=== PATIENT | female | born 1935 | race Two or more races ===

== ENCOUNTER 2025-04-16 16:37 | Inpatient (IN) | payer MEDICAID, OTHER ==
[~2025-04-16] VITALS: Ht 152.4 cm; Wt 52.7 kg
--- NOTE | 2025-04-16 17:04 | ECG ---
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
--- NOTE | 2025-04-16 17:04 | ED.PDOC ---
HPI (NEURO) HPI Comments 89 y/o F, BIBA, with PMHx of CVA presents to the ED for CC of weakness. EMS reports, patient is coming from home where she c/o generalized weakness with associated dizziness onset today (04/16/25). Patient denies headache, nausea, vomiting, disorientation, or changes in speech. No other symptoms or modifying factors are present at this time. Chief Complaint: Syncope Time Seen by MD: 16:50 Reviewed Notes: Nurses Notes, Commercial Assistant Notes, Medications, Allergies Information Source: Patient, Emergency Med Personnel Mode of Arrival: EMS Severity: Moderate Dizziness/Weakness Severity: Unable to do activities Headache Severity: None Timing: Days Duration: Since onset Prehospital treatment: None Weakness Location: Generalized Onset: At rest Circumstances: Spontaneous Symptoms: Weakness Before: Normal During: Awake After: Normal Mentation Modifying factors: Nothing Associated Signs and Symptoms: Weakness Past Medical History PAST MEDICAL HISTORY: CVA Surgical History: Denies all surgeries TAX COMPLIANCE OFFICER History: Denies all TAX COMPLIANCE OFFICER Hx Family History Family History: Unknown Social History Smoker: Non-Smoker Alcohol: Denies ETOH Use Drugs: Denies Drug Use Lives In: Home Constitutional: reports: weakness; denies: chills, diaphoresis, fatigue, fever, malaise, sweats, others EENTM: denies: blurred vision, double vision, ear bleeding, ear discharge, ear drainage, ear pain, ear ringing, eye pain, eye redness, hearing loss, mouth pain, mouth swelling, nasal discharge, nose bleeding, nose congestion, nose pain, photophobia, tearing, throat pain, throat swelling, voice changes, others Respiratory: denies: cough, hemoptysis, orthopnea, SOB at rest, shortness of b reath, SOB with excertion, stridor, wheezing, others Cardiovascular: denies: chest pain, dizzy spells, diaphoresis, Dyspnea on exertion, edema, irregular heart beat, left arm pain, lightheadedness, palpitations, PND, syncope, others Gastrointestinal: denies: abdomen distended, abdominal pain, blood streaked bowels, constipated, diarrhea, dysphagia, difficulty swallowing, hematemesis, melena, nausea, poor appetite, poor fluid intake, rectal bleeding, rectal pain, vomiting, others Genitourinary: denies: abnormal vagina bleeding, burning, dyspareunia, dysuria, flank pain, frequency, hematuria, incontinence, pain, , vagina discharge, urgency, others Neurological: reports: dizziness; denies: fainting, headache, left sided numbness, left sided weakness, numbness, paresthesia, pre-existing deficit, right sided numbness, right sided weakness, seizure, speech problems, tingling, tremors, weakness, others Musculoskeletal: denies: back pain, gout, joint pain, joint swelling, muscle pain, muscle stiffness, neck pain, others Integumetry: denies: bruises, change in color, change in hair/nails, dryness, laceration, lesions, lumps, rash, wounds, others Allergic/Immunocompromised: denies: Difficulty Healing, Frequent Infections, Hives, Itching, others Hematologic/Lymphatic: denies: anemia, blood clots, easy bleeding, easy brui sing, swollen glands, others Endocrine: denies: excessive hunger, excessive sweating, excessive thirst, ex cessive urination, flushing, intolerance to cold, intolerance to heat, unexplained weight gain, unexplained weight loss, others Psychiatric: denies: anxiety, bipolar disorder, depression, hopeless, panic disorder, schizophrenia, sleepless, suicidal, others All Other Systems: Reviewed and Negative Physical Exam General Appearance: Moderate Distress HEENT: Normal ENT Inspection, Pharynx Normal, TMs Normal Neck: Full Range of Motion, Non-Tender, Normal, Normal Inspection Respiratory: Chest Non-Tender, Lungs Clear, No Accessory Muscle Use, No Respiratory Distress, Normal Breath Sounds Cardiovascular: No Edema, No JVD, No Murmur, No Gallop, Normal Peripheral Pulses, Regular Rate/Rhythm Breast Exam: Deferred Gastrointestinal: No Organomegaly, Non Tender, No Pulsatile Mass, Normal Bowel Sounds, Soft Genitalia: Deferred Pelvic: Deferred Rectal: Deferred Extremities: No calf tenderness, No pedal edema Musculoskeletal : Apperance: Normal Neurologic: Alert, No Motor Deficits, No Sensory Deficits Cerebellar Function: NOT DONE Reflexes: NOT DONE Skin: Normal Color Peripheral Pulses: 3+ Radial (R), 3+ Radial (L) Lymphatic: No Adenopathy Was a procedure done? Was a procedure done?: No Differential Diagnosis (SZ) Seizure: Psychogenic Seizure, Closed Head Injury, CVA/TIA General Weakness: Dehydration, Electrolyte imbalance, Hypoglycemia, Hypotension, Vertigo: central, Vertigo: peripheral X-Ray, Labs, Meds, VS Vital Signs Date Time Temp Pulse Resp B/P (MAP) Pulse Ox O2 Delivery O2 Flow Rate FiO2 04/16/25 16:55 68 04/16/25 16:51 97.9 65 16 113/61 95 97.9 Patient alert. History of CVA. Vitals stable. Answering questions. Complaining of dizziness. Near-syncope. Explained to the patient. Continue monitoring. Time of 1ST Reevaluation: 17:20 Reevaluation 1ST: Unchanged Patient Education/Counseling: Diagnosis, Treatment Family Education/Counseling: No Family Present Departure 1 Departure Time of Disposition: 17:10 Impression: Primary Impression: Near syncope Additional Impression: Autonomic disorder Disposition: ADMITTED INPATIENT Admit to: Med Surg Condition: Guarded Critical Care Note Critical Care Time?: No Stability Stability form required: No Heart Score Heart Score: Heart Score Response (Comments) Value History N/A 0 EKG N/A 0 Age N/A 0 Risk Factors N/A 0 Troponin N/A 0 Total 0 I personally scribed for YOLANDE CAMPOS MD ([email or web address]) on 04/16/25 at 17:04. Electronically submitted by Sidra Garcia ([email or web address]). YOLANDE CAMPOS MD Apr 16, 2025 17:04
[2025-04-16 17:21] LABS: Hematocrit 37.6 % (36.0-46.0); Hemoglobin 12.3 g/dL (12.2-16.2); Mean Corpuscular Hemoglobin 29.0 pg (28.0-32.0); Mean Corpuscular Volume 88.6 fL (80.0-100.0); Nucleated Red Blood Cells % 0.1 %
[2025-04-16 17:25] LABS: Chloride 107 mmol/L (98-107); Potassium 4.3 mmol/L (3.5-5.1); Sodium 140 mmol/L (136-145)
[2025-04-16 17:26] LABS: Anion Gap 7 (5-15); Calcium 8.9 mg/dL (8.7-10.4); Carbon Dioxide 26 mmol/L (20-31)
[2025-04-16] MEDS: SODIUM CHLORIDE 0.9% 1,000 ML IV ONE (17:28)
[2025-04-16 17:31] LABS: Glucose 151 mg/dL (74-106)
--- NOTE | 2025-04-16 17:36 | DVH ---
EXAM: CT HEAD WITHOUT CONTRAST INDICATION: tia TECHNIQUE: CT of the head without intravenous contrast. Radiation Dose : 1. Head: CT Dose: CTDI volume is 53.4 mGy. Dose-length product is 965.2 mGy*cm The dose indicators for CT are the volume Computed Tomography (CT) Dose Index (CTDIvol) and the Dose Length Product (DLP), and are measured in units of mGy and mGy-cm, respectively. These indicators are not patient dose, but values generated from the CT scanner acquisition factors. The report includes radiation exposure data for exposures received during this examination. COMPARISON: None FINDINGS: Motion artifact degrades fine detail. No acute territorial infarct, intracranial hemorrhage, or mass effect. There are global involutional changes with compensatory prominence of the ventricles and sulci. Patchy periventricular and subcortical white matter hypoattenuation is nonspecific but may be related to small vessel ischemic disease. Chronic deep cerebral lacunar infarcts. Probable small chronic bilateral cerebellar infarcts. The orbits are normal. The paranasal sinuses and mastoid air cells are clear. The osseous structures are unremarkable. IMPRESSION: 1. No acute territorial infarct, intracranial hemorrhage, or mass effect. 2. Age-related involutional changes. Chronic ischemic changes as detailed. 3. If clinical symptoms persist, MRI may be beneficial in further evaluation. Radiation optimization: All CT scans at this facility use at least one of these dose optimization techniques: automated exposure control mA and/or kV adjustment per patient size (includes targeted exams where dose is matched to clinical indication) or iterative reconstruction.
--- NOTE | 2025-04-16 17:38 | DVH ---
CLINICAL HISTORY: Shortness of breath TECHNIQUE: Single frontal view of the chest was obtained. COMPARISON: None available. FINDINGS: DEVICES/LINES/TUBES: None. LUNGS: Scattered reticular opacities of the lung bases, which favors subsegmental atelectasis, mild scarring, and/or senescent changes. Otherwise, lungs are clear. No consolidation or jorge pulmonary edema. PLEURA: No pneumothorax or pleural effusion. MEDIASTINUM/OTHER: Normal heart size and mediastinal contours. Aortic atherosclerosis. Trachea is midline. BONES: No acute osseous abnormality. UPPER ABDOMEN: Unremarkable. IMPRESSION: No acute cardiopulmonary process.
[2025-04-16 17:50] LABS: BUN/Creatinine Ratio 17.5 (10.0-20.0); Blood Urea Nitrogen 17 mg/dL (9-23)
[2025-04-16 18:01] VITALS: PULSE 67; RESP 14; O2SAT 97
--- NOTE | 2025-04-16 23:45 | DVHHPRES ---
History of Present Illness Resident Creating Document: RADHA CRONIN RESIDENT History of Present Illness Mounika Guadarrama is an 89 year old Venezuelan-speaking female with past medical history of stroke presented to the hospital a syncopal episode. Patient reports that she was standing, washing her hands when she fainted. She did not hit her head because the daughter held her. She lost consciousness for a few seconds. She denies any tongue biting or seizure-like activity. She admits to having dizziness and blurry vision before the syncopal episode. Patient has a history of stroke 2 years back with residual left-sided weakness. she denies taking any home medication. She denies any previous syncopal episode, fever, shortness of breath or chest pain. PMHx:stroke PSHx: Hip surgery Family history: patient does not know family history Social history: ex-smoker, denies alcohol or illicit drug use. Lives with daughter. Does not remember where she lives Home medication: none Allergic history: no known allergies Review of Systems Review of Systems General: patient denies fever, fatigue, weakness, sweating, any recent changes in appetite and weight HEENT: No headaches, visual changes, hearing loss, tinnitus, nasal congestion and discharge, and sore throat. Cardiovascular: Denies chest pain, palpitations, dyspnea on exertion, orthopnea, or claudication. Respiratory: No cough, and wheezing. Gastrointestinal: Denies nausea, vomiting, dysphagia, odynophagia, heartburn, abdominal pain, flatulence, bloating, diarrhea, constipation, change in stool, or blood in stool. Genitourinary: No dysuria, hematuria, discharge, frequency, urgency, nocturia, incontinence, and urinary retention. Endocrine: No heat or cold intolerance, polydipsia, polyuria, and polyphagia. Neurological: No dizziness, extremity weakness and numbness, tremors, gait disturbance, seizures, and memory impairment. Psychiatric: Denies depression, anxiety, or insomnia. Musculoskeletal: Denies neck pain, stiffness and swelling, back pain, muscle weakness, joint pain, stiffness, swelling, or limited range of motion. Skin: No rashes, itching, skin lesion, changes in hair, nail, skin texture and breast. Hematologic/Lymphatic: Denies easy bruising, bleeding tendencies, or lymph node enlargement. Allergies: Coded Allergies: No Known Drug Allergy (Unverified Allergy, Unknown, 04/16/25) Exam Vital Signs Vital Signs Date Time Temp Pulse Resp B/P (MAP) Pulse Ox O2 Delivery O2 Flow Rate FiO2 04/16/25 20:00 97.6 70 12 137/62 (87) 93 97.6 04/16/25 18:01 Room Air* 0 21 Exam General Appearance: Alert, Oriented X3, Cooperative, No acute distress HEENT: Atraumatic, PERRLA, EOMI, Mucous membrane moist/pink Respiratory: Bilateral crackles Cardiovascular: Regular rate, Normal S1, Normal S2, No murmurs, no chest wall tenderness Abdominal: Normal bowel sounds, Soft, No tenderness, No hepatosplenomegaly, No masses Extremities: No clubbing, No cyanosis, No edema, Normal pulses, No tenderness/swelling Skin: No rashes, No breakdown, No significant lesion Neuro: Normal gait, Normal speech, Normal tone, Sensation intact, Strength 3/5 left upper and lower limbs, dysdiadochokinesia left side Psych/Mental Status: Mental status NL, Mood NL Labs/Xrays Labs Test 04/16/25 17:00 Range/Units White Blood Count 5.5 4.4-10.8 10^3/uL Red Blood Count 4.24 4.0-5.20 10^6/uL Hemoglobin 12.3 12.2-16.2 g/dL Hematocrit 37.6 36.0-46.0 % Mean Corpuscular Volume 88.6 80.0-100.0 fL Mean Corpuscular Hemoglobin 29.0 28.0-32.0 pg Mean Corpuscular Hemoglobin Concent 32.8 32.0-36.0 g/dL Red Cell Distribution Width 16.1 H 11.8-14.3 % Platelet Count 243 140-450 10^3/uL Mean Platelet Volume 8.5 6.9-10.8 fL Neutrophils (%) (Auto) 73.7 37.0-80.0 % Lymphocytes (%) (Auto) 17.1 10.0-50.0 % Monocytes (%) (Auto) 7.5 0.0-12.0 % Eosinophils (%) (Auto) 1.3 0.0-7.0 % Basophils (%) (Auto) 0.4 0.0-2.0 % Neutrophils # (Auto) 4.1 1.6-8.6 10 ^3/uL Lymphocytes # (Auto) 0.9 0.4-5.4 10 ^3/uL Monocytes # (Auto) 0.4 0-1.3 10 ^3/uL Eosinophils # (Auto) 0.1 0-0.8 10 ^3/uL Basophils # (Auto) 0 0-0.2 10 ^3/uL Nucleated Red Blood Cells 0.1 % Sodium Level 140 136-145 mmol/L Potassium Level 4.3 3.5-5.1 mmol/L Chloride Level 107 98-107 mmol/L Carbon Dioxide Level 26 20-31 mmol/L Anion Gap 7 5-15 Blood Urea Nitrogen 17 9-23 mg/dL Creatinine 0.97 0.550-1.02 mg/dL Glomerular Filtration Rate Calc 56 >90 mL/min BUN/Creatinine Ratio 17.5 10.0-20.0 Serum Glucose 151 H 74-106 mg/dL Calcium Level 8.9 8.7-10.4 mg/dL Troponin I High Sensitivity 9 </=34 ng/L SEPSIS Sepsis Screen Date sepsis recognized/suspect: Apr 16, 2025 Time Sepsis recognized/suspect: 1729 Recent Procedure: No On Antibiotic Therapy: No Respiratory Rate >20: No Heart Rate >90: No Temp<36 C (96.8 F) or >38.3 C: No SBP <90 or MAP <65 mmHG: No New Acute Mental Status Change: No Is the patient on CPAP, BIPAP,: No Physician Orders Head Without Contrast (04/16/25 16:52) Chest Portable (04/16/25 16:52) Urinalysis (04/16/25 16:52) Admit (04/16/25 23:43) Allergies (04/16/25 23:43) Code Status (04/16/25 23:43) Enoxaparin Sodium (Lovenox) (04/17/25 10:00) Fall Risk Precautions In Place QSHIFT (04/16/25 23:43) Complete Blood Count (04/17/25 04:00) Comprehensive Metabolic Panel (04/17/25 04:00) Cardiac Diet-2gna,Lofat,Lochol (04/17/25 Breakfast) Condition: Fair (04/16/25 23:43) Vital Signs Date Time Temp Pulse Resp B/P (MAP) Pulse Ox O2 Delivery O2 Flow Rate FiO2 04/16/25 20:00 97.6 70 12 137/62 (87) 93 97.6 04/16/25 18:01 97.6 67 14 121/46 (71) 99 97.6 04/16/25 18:01 67 14 97 Room Air* 0 21 04/16/25 16:55 68 04/16/25 16:51 97.9 65 16 113/61 95 97.9 Laboratory Tests Test 04/16/25 17:00 White Blood Count 5.5 10^3/uL (4.4-10.8) Medications Medications Dose Ordered Sig/Doug Route Start Time Stop Time Status Last Admin Dose Admin Sodium Chloride 1,000 ml @ 1,000 mls/hr Q1H ONCE IV 04/16/25 17:00 04/16/25 17:59 DC 04/16/25 17:28 1,000 MLS/HR Assessment/Plan Assessment/Plan Assessment and plan Syncope likely vasovagal History of stroke CT head CT angio head and neck Orthostatic vital signs Echo troponin, BNP Magnesium Aspirin, atorvastatin Hyperglycemia, rule out type 2 diabetes mellitus Blood glucose 151 Hemoglobin A1c PUD prophylaxis: not needed DVT prophylaxis: Lovenox 40mg Barriers to discharge: Medical diagnosis and management in progress. Patient lives with family. PCP: none Specialist Relevant To Admission: none Case discussed with Dr. Tsai. Code Status: Full Code. Complex patient care discussion needed. Spend total 37 minutes for bedside assessment, case discussion and management. Plan discussed with: Patient My Orders Orders - RADHA CRONIN RESIDENT Procedure Category Date Status Time Admit ADMIT 04/16/25 Verified 23:43 Allergies [facility] 04/16/25 Verified 23:43 Code Status CODE 04/16/25 Verified 23:43 Enoxaparin Sodium PHA 04/17/25 Verified (Lovenox) 10:00 Fall Risk Precautions [facility] 04/16/[address] 23:43 Complete Blood Count LAB 04/17/25 Verified 04:00 Comprehensive LAB 04/17/25 Verified Metabolic Panel 04:00 Cardiac DIET 04/17/25 Verified Diet-2gna,Lofat,Lochol Breakfast Condition: Fair [facility] 04/16/25 Verified 23:43 Visit Coding STANDARD RES Billing Provider: GISELE TSAI MD Date of Service if different f: Apr 16, 2025 Common Visit Codes: 82919-[id number] INP/OBS CARE (HIGH) Secondary Visit Codes: [id number] CARE PLAN 30 MINUTES RADHA CRONIN RESIDENT Apr 16, 2025 23:45
[2025-04-17] MEDS: ASPirin-EC 81 mg tab PO ONE (01:48)
[2025-04-17] MEDS: ATORVASTATIN 20 MG TAB PO ONE (01:48)
--- NOTE | 2025-04-17 06:25 | DVH ---
PROCEDURE: CT ANGIO HEAD/Neck HISTORY: h/o stroke Comparison Study: CT HEAD WITHOUT CONTRAST on DOS: 04/16/25 Exam Date:04/17/2025 05:17 AM TECHNIQUE: CTA head and neck was obtained with intravenous contrast. 3D image postprocessing was performed and images were used for interpretation and reporting. Radiation Dose : CT Dose: CTDI volume is 22.2 mGy. Dose-length product is 709.5 mGy*cm FINDINGS: CTA head: The bilateral distal internal carotid arteries, middle cerebral and anterior cerebral arteries are patent. There is a patent anterior communicating artery complex. The vertebral arteries are patent. Bilateral posterior cerebral arteries are patent. The basilar artery is patent. No evidence of arteriovenous malformation or aneurysm. No high-grade stenosis or occlusion. CTA neck: There are atherosclerotic calcifications in the thoracic aorta without significant stenosis. The right common carotid, right internal and external carotid arteries are patent. The left common carotid, left internal and external carotid arteries are patent. The bilateral vertebral arteries are patent. No evidence of dissection or high-grade stenosis in the neck. Emphysema in the lung apices. The surrounding soft tissues and osseous structures are otherwise unremarkable. IMPRESSION: 1. No evidence of hemodynamically significant intracranial stenosis, proximal occlusion or aneurysm. 2. No evidence of hemodynamically significant cervical stenosis or dissection. CAROTID STENOSIS REFERENCE Distal internal carotid artery diameter as the denominator for stenosis measurement: MILD = <50% stenosis. MODERATE = 50-69% stenosis. SEVERE = 70-89% stenosis. CRITICAL = 90-99% stenosis. OCCLUDED = 100% stenosis. All CT scans at this medical facility are performed using dose modulation techniques as appropriate to a performed exam including the following: Automated exposure control was utilized; adjustment of the MA and/or KV according to patient size; and use of iterative reconstruction technique.
[2025-04-17 06:29] LABS: Hematocrit 37.0 % (36.0-46.0); Hemoglobin 12.2 g/dL (12.2-16.2); Mean Corpuscular Hemoglobin 29.1 pg (28.0-32.0); Mean Corpuscular Volume 88.3 fL (80.0-100.0); Nucleated Red Blood Cells % 0.0 %
[2025-04-17] MEDS: IOHEXOL 350 MG/ML 100ML IJ ONE ×2 (06:35)
[2025-04-17 06:41] LABS: Triglycerides 78 mg/dL (< 150)
[2025-04-17 06:43] LABS: Cholesterol 151 mg/dL (< 200); HDL Cholesterol 53 mg/dL (40-59)
[2025-04-17 06:48] LABS: Alanine Aminotransferase 20 U/L (7-40); Albumin 4.0 g/dL (3.2-4.8); Alkaline Phosphatase 71 U/L (46-116); Anion Gap 8 (5-15); BUN/Creatinine Ratio 20.0 (10.0-20.0); Bilirubin, Total 0.6 mg/dL (0.2-1.0); Blood Urea Nitrogen 13 mg/dL (9-23); Carbon Dioxide 27 mmol/L (20-31); Chloride 105 mmol/L (98-107); Glucose 80 mg/dL (74-106); Magnesium 2.1 mg/dL (1.6-2.6); Potassium 3.6 mmol/L (3.5-5.1); Sodium 140 mmol/L (136-145); Total Protein 7.1 g/dL (5.7-8.2)
[2025-04-17 06:52] LABS: Calcium 8.6 mg/dL (8.7-10.4)
--- NOTE | 2025-04-17 10:20 | DVHPNRES ---
Progress Note Date Seen: Apr 17, 2025 Resident Creating Document: JONAH ZELAYA RESIDENT Medical Necessity Reason Pt with a Central, PICC or Fol: No Subjective Review of Systems This 89-year-old female Portuguese speaking past medical history of stroke with left-sided weakness(improving with PT) came to ER with a complaint of syncopal episode. As per daughter who accompanied with patient in ER, around 3:00 p.m. day before admission to hospital patient was washing her hand and suddenly feel dizziness associated with blurry vision. Daughter nearby the patient and hold her and put her down on the floor. Denies any head trauma or any seizure activity. As per daughter, patient having loss her consciousness for few sec. Patient having history of stroke 2 years back with residual left-sided weakness improving with physical therapy. Patient use Rollator walker at home for ambulation. Denies any similar episode before. During evaluation in ER, patient denies any fever, SOB, chest pain, cough, abdominal pain, dysuria. PMHx:stroke PSHx: Hip surgery Family history: patient does not know family history Social history: ex-smoker, denies alcohol or illicit drug use. Lives with daughter. Does not remember where she lives Allergic history: no known allergies PCP: [facility] medication: Aspirin 81 mg Patient seen and evaluated in bedside. Currently denies any acute distress. Echocardiogram pending. Objective vital signs Vital Sign Date Time Temp Pulse Resp B/P (MAP) Pulse Ox O2 Delivery O2 Flow Rate FiO2 04/17/25 08:21 76 18 147/72 (97) 94 04/17/25 08:00 97.3 97.3 04/17/25 08:00 Room Air* 0 21 medications Current Medications Medications Dose Ordered Sig/Doug Route Start Time Stop Time Status Last Admin Dose Admin Enoxaparin Sodium 40 mg DAILY SC 04/17/25 10:00 Aspirin 81 mg DAILY PO 04/17/25 10:00 Atorvastatin Calcium 40 mg HS PO 04/17/25 22:00 Examination General Appearance: Alert, Oriented X3, Cooperative, No acute distress HEENT: Atraumatic, PERRLA, EOMI, Mucous membrane moist/pink Respiratory: CTA BL, no wheeze or crackles noted Cardiovascular: Regular rate, Normal S1, Normal S2, No murmurs, no chest wall tenderness Abdominal: Normal bowel sounds, Soft, No tenderness, No hepatosplenomegaly, No masses Extremities: No clubbing, No cyanosis, No edema, Normal pulses, No tenderness/swelling Skin: No rashes, No breakdown, No significant lesion Neuro: Normal gait, Normal speech, Normal tone, Sensation intact, Strength 4/5 left upper and lower limbs compared to right upper/lower extremity Psych/Mental Status: Mental status NL, Mood NL laboratory and microbiology Laboratory Tests 04/17/25 06:08 Test 04/17/25 06:08 Range/Units Serum Glucose 80 74-106 mg/dL Problem List/Assessment/Plan Problem List/Assessment/Plan Syncope likely vasovagal History of stroke Ruled out orthostatic hypotension Blood pressure sitting 147/66, lying 141/72, standing 147/72 CT head: No acute territorial infarct, intracranial hemorrhage or mass effect. Age-related involutional changes CT angio head and neck: No evidence of hemodynamically significant intracranial stenosis, proximal occlusion or aneurysm. X-ray Chest: No acute cardiopulmonary disease EKG: Sinus rhythm, rate 68, QTC 465 Orthostatic vital signs Echo pending troponin-negative, BNP 255.77 Magnesium 2.1 Aspirin Atorvastatin Prediabetes Blood glucose 151 on admission Hemoglobin A1c 6.1 Avoid Sugar and sugar containing diet PUD prophylaxis: not needed DVT prophylaxis: Lovenox 40mg Goals of care discussions. More than 23minutes spent with patient and daughter. Case discussed with Dr. Tsai Plan discussed with: Patient, Daughter, Other (NURSE) My Orders My Orders Orders - JONAH ZELAYA Procedure Category Date Status Time Vitamin D, 25-Hydroxy LAB 04/17/25 In Process 09:00 Visit Coding STANDARD RES Billing Provider: GISELE TSAI MD Date of Service if different f: Apr 17, 2025 Common Visit Codes: [id number] INP/OBS CARE(HIGH) JONAH ZELAYA Apr 17, 2025 10:20 GISELE TSAI MD Apr 19, 2025 14:31
[2025-04-17] MEDS: ASPirin-EC 81 mg tab PO SCH (11:26)
[2025-04-17] MEDS: ENOXAPARIN SOD 40 MG/0.4 ML SYRINGE SC SCH (11:27)
[2025-04-17 12:27] VITALS: BP 150/60; PULSE 55; RESP 16; TEMP 97.4; O2SAT 92
[2025-04-17 12:40] VITALS: BP_SYST 114; BP_SYST 124; BP_SYST 150; BP_DIAS 51; BP_DIAS 60; BP_DIAS 61; PULSE 55; PULSE 69; PULSE 74; TEMP 97.4; O2SAT 92
[2025-04-17 13:06] LABS: Urine Protein, UAD Negative (Negative)
[2025-04-17 13:16] LABS: Amphetamine Screen, Urine Neg (NEGATIVE); Barbiturate Scree,Urine Neg (NEGATIVE); Benzodiazephine Screen, Urine Neg (NEGATIVE); Cannabinoid Screen, Urine Neg (NEGATIVE); Cocaine Screen, Urine Neg (NEGATIVE); Opiate Scree,Urine Neg (NEGATIVE); Phencyclidine Screen, Urine Neg (NEGATIVE)
[2025-04-17] MEDS ORDERED: ASPI1TAB20 PO (13:28)
[2025-04-17 14:15] VITALS: BP_SYST 114; BP_SYST 124; BP_SYST 150; BP_DIAS 51; BP_DIAS 60; BP_DIAS 61; PULSE 55; PULSE 69; PULSE 74; RESP 16; TEMP 97.4; O2SAT 92
[2025-04-17] MEDS: SODIUM CHLORIDE 0.9% 1,000 ML IV ONE (15:00)
[2025-04-17 17:00] VITALS: BP_SYST 136; BP_SYST 139; BP_SYST 146; BP_DIAS 57; BP_DIAS 59; PULSE 56; PULSE 57; PULSE 62; RESP 16; TEMP 97.4; O2SAT 96
--- NOTE | 2025-04-17 19:53 | DVHSR ---
APPROVED REPORT EXAM: Two-dimensional and M-mode echocardiogram with Doppler and color Doppler. Blood Pressure: 153/60 mmHg INDICATION Rule out structural heart disease RISK FACTORS Height: 5'0", Weight: 105 DIMENSIONS LVDd 4.2 (3.8-5.7cm) LA (2D) 4.0 (1.9-4.0cm) Aortic Root 3.5 (2.0-3.7cm) LVDs 2.9 (2.5-4.0cm) LA (MM) (1.9-4.0cm) Aortic Cusp Exc 1.7 (1.5-2.0cm) EF (%) 55.0 (55-70%) Rt. Atrium 4.2 (1.9-4.0cm) Asc. Aorta cm IVSd 1.2 (0.7-1.1cm) RV (D) (1.8-2.4cm) PWd 1.2 (0.7-1.1cm) Mitral Valve Mitral Mitral Stenosis E wave 0.61m/s MV Mean GR. mmHg A wave 0.90m/s MV Peak GR. mmHg E/A ratio 0.7 2D MVA cm2 DECEL Time 393ms PRESS 1/2 Time ms Aortic Valve Aortic Valve Aortic Stenosis V1 0.96m/s AO Mean GR. 4mmHg V2 1.49m/s AO Peak GR. 9mmHg LVOT Diameter 1.8 (1.8-2.4cm) Doppler KAUSAHL 1.64cm2 Pulmonic Valve V2 1.09m/s Tricuspid Valve TR Velocity 2.70m/s RVSP 37mmHg Other Information Technically limited study due to body habitus. Conclusion MODERATE DEGREE LVH MODERATE LV DIASTOLIC DYSFUNCTION LV EF IS 65% NORMAL VALVES NORMAL RV FUNCTION NO EFFUSION
[2025-04-17 20:00] VITALS: PULSE 64; PULSE 75; RESP 18; O2SAT 93
[2025-04-17 21:00] VITALS: BP_SYST 150; BP_SYST 154; BP_SYST 160; BP_DIAS 72; BP_DIAS 83; BP_DIAS 89; PULSE 64; PULSE 69; PULSE 86; RESP 19; TEMP 97; O2SAT 93
[2025-04-17] MEDS: ATORVASTATIN 20 MG TAB PO SCH (21:17)
[2025-04-18] VITALS (10 sets, daily range): BP systolic 128–151; BP diastolic 60–82; PULSE 52–75; RESP 16–20; TEMP 97.6–98.4; O2SAT 93–96
[2025-04-18 06:59] LABS: Hematocrit 35.7 % (36.0-46.0); Hemoglobin 11.7 g/dL (12.2-16.2); Mean Corpuscular Hemoglobin 28.9 pg (28.0-32.0); Mean Corpuscular Volume 87.8 fL (80.0-100.0); Nucleated Red Blood Cells % 0.0 %
[2025-04-18 07:18] LABS: Anion Gap 10 (5-15); Carbon Dioxide 27 mmol/L (20-31); Potassium 3.7 mmol/L (3.5-5.1); Sodium 144 mmol/L (136-145)
[2025-04-18 07:19] LABS: Calcium 8.7 mg/dL (8.7-10.4)
[2025-04-18 07:20] LABS: Chloride 107 mmol/L (98-107)
[2025-04-18 07:24] LABS: BUN/Creatinine Ratio 14.8 (10.0-20.0); Blood Urea Nitrogen 9 mg/dL (9-23); Glucose 83 mg/dL (74-106)
--- NOTE | 2025-04-18 16:18 | DVHPNRES ---
Progress Note Date Seen: Apr 18, 2025 Resident Creating Document: JONAH ZELAYA RESIDENT Medical Necessity Reason Pt with a Central, PICC or Fol: No Subjective Review of Systems This 89-year-old female [place] speaking past medical history of stroke with left-sided weakness(improving with PT) came to ER with a complaint of syncopal episode. As per daughter who accompanied with patient in ER, around 3:00 p.m. day before admission to hospital patient was washing her hand and suddenly feel dizziness associated with blurry vision. Daughter nearby the patient and hold her and put her down on the floor. Denies any head trauma or any seizure activity. As per daughter, patient having loss her consciousness for few sec. Patient having history of stroke 2 years back with residual left-sided weakness improving with physical therapy. Patient use Rollator walker at home for ambulation. Denies any similar episode before. During evaluation in ER, patient denies any fever, SOB, chest pain, cough, abdominal pain, dysuria. PMHx:stroke PSHx: Hip surgery Family history: patient does not know family history Social history: ex-smoker, denies alcohol or illicit drug use. Lives with daughter. Does not remember where she lives Allergic history: no known allergies PCP: [facility] medication: Aspirin 81 mg Seen and evaluated bedside today. Patient having asymptomatic bradycardia. After activity like movement body parts heart rate reaches 55 to 75. Currently denies any acute distress. Appetite is improving. Objective vital signs Vital Sign Date Time Temp Pulse Resp B/P (MAP) Pulse Ox O2 Delivery O2 Flow Rate FiO2 04/18/25 12:55 98.2 52 18 130/60 (83) 96 98.2 04/18/25 08:18 Room Air* 0 21 Total Intake and Output 04/17/25 04/17/25 04/18/25 15:00 23:00 07:00 Intake Total 1200 ml 0 ml Balance 1200 ml 0 ml medications Current Medications Medications Dose Ordered Sig/Doug Route Start Time Stop Time Status Last Admin Dose Admin Enoxaparin Sodium 40 mg DAILY SC 04/17/25 10:00 04/18/25 11:12 40 MG Aspirin 81 mg DAILY PO 04/17/25 10:00 04/18/25 11:11 81 MG Atorvastatin Calcium 40 mg HS PO 04/17/25 22:00 04/17/25 21:17 40 MG Examination Patient currently lying on bed General Appearance: Alert, Oriented X3, Cooperative, No acute distress HEENT: Atraumatic, PERRLA, EOMI, Mucous membrane moist/pink Respiratory: CTA BL, no wheeze or crackles noted Cardiovascular: Regular rate, Normal S1, Normal S2, No murmurs, no chest wall tenderness Abdominal: Normal bowel sounds, Soft, No tenderness, No hepatosplenomegaly, No masses Extremities: No clubbing, No cyanosis, No edema, Normal pulses, No tenderness/swelling Skin: No rashes, No breakdown Neuro: Normal gait, Normal speech, Normal tone, Sensation intact, Strength 4/5 left upper and lower limbs compared to right upper/lower extremity Psych/Mental Status: Mental status NL, Mood NL laboratory and microbiology Laboratory Tests 04/18/25 06:05 Test 04/18/25 06:05 Range/Units Serum Glucose 83 74-106 mg/dL Problem List/Assessment/Plan Problem List/Assessment/Plan Syncope likely vasovagal History of stroke Ruled out orthostatic hypotension Blood pressure sitting 147/66, lying 141/72, standing 147/72 CT head: No acute territorial infarct, intracranial hemorrhage or mass effect. Age-related involutional changes CT angio head and neck: No evidence of hemodynamically significant intracranial stenosis, proximal occlusion or aneurysm. X-ray Chest: No acute cardiopulmonary disease EKG: Sinus rhythm, rate 68, QTC 465 Orthostatic vital signs Echo 04/17/2025 showed moderate degree of LVH, moderate diastolic dysfunction, LVEF 65%, normal valves troponin-negative, BNP 255.77 Magnesium 2.1 Aspirin Atorvastatin Symptomatic bradycardia Heart rate increases during physical activity. Patient denies any SOB, chest pain, cough, palpitation. Echocardiogram shows moderate diastolic dysfunction with EF 65% Patient will benefitted with follow-up with outpatient Cardiology possible stress test and Holter monitor. Prediabetes Blood glucose 151 on admission Hemoglobin A1c 6.1 Avoid Sugar and sugar containing diet PUD prophylaxis: not needed DVT prophylaxis: Lovenox Goals of care discussions. More than 19 minutes spent with patient. Case discussed with Dr. Tsai Plan discussed with: Patient, Other (Nurse) Visit Coding STANDARD RES Billing Provider: GISELE TSAI MD Date of Service if different f: Apr 18, 2025 Common Visit Codes: [id number] INP/OBS CARE(HIGH) JONAH ZELAYA RESIDENT Apr 18, 2025 16:18 GISELE TSAI MD Apr 19, 2025 14:46
[2025-04-19] MEDS: MELATONIN 5 MG TAB PO ONE (00:24)
[2025-04-19 02:00] VITALS: BP 143/73; PULSE 59; RESP 19; TEMP 97.9; O2SAT 94
[2025-04-19 05:00] VITALS: BP 131/64; PULSE 55; RESP 18; TEMP 97.7; O2SAT 96
[2025-04-19 05:24] LABS: Hematocrit 34.9 % (36.0-46.0); Hemoglobin 11.6 g/dL (12.2-16.2); Mean Corpuscular Hemoglobin 28.7 pg (28.0-32.0); Mean Corpuscular Volume 86.7 fL (80.0-100.0); Nucleated Red Blood Cells % 0.0 %
[2025-04-19 05:38] LABS: Chloride 106 mmol/L (98-107); Potassium 3.8 mmol/L (3.5-5.1); Sodium 142 mmol/L (136-145)
[2025-04-19 05:39] LABS: Anion Gap 7 (5-15); Carbon Dioxide 29 mmol/L (20-31)
[2025-04-19 05:40] LABS: Calcium 8.9 mg/dL (8.7-10.4)
[2025-04-19 05:44] LABS: BUN/Creatinine Ratio 25.0 (10.0-20.0); Blood Urea Nitrogen 17 mg/dL (9-23); Glucose 89 mg/dL (74-106)
[2025-04-19] MEDS ORDERED: ASPI81CH59 PO (06:39)
[2025-04-19] MEDS ORDERED: ATOR20TA50 PO (06:39)
--- NOTE | 2025-04-19 06:39 | DVHDSRES ---
Discharge Summary Date of Admission Resident Creating Document: JONAH ZELAYA RESIDENT Apr 16, 2025 at 23:43 Date of Discharge: Apr 19, 2025 Labs/Diagnostic Data: Laboratory Results Test 04/19/25 04:47 04/17/25 06:08 04/16/25 17:00 04/16/25 12:36 White Blood Count 5.1 10^3/uL (4.4-10.8) Red Blood Count 4.03 10^6/uL (4.0-5.20) Hemoglobin 11.6 g/dL (12.2-16.2) Hematocrit 34.9 % (36.0-46.0) Mean Corpuscular Volume 86.7 fL (80.0-100.0) Mean Corpuscular Hemoglobin 28.7 pg (28.0-32.0) Mean Corpuscular Hemoglobin Concent 33.1 g/dL (32.0-36.0) Red Cell Distribution Width 15.7 % (11.8-14.3) Platelet Count 228 10^3/uL (140-450) Mean Platelet Volume 8.6 fL (6.9-10.8) Neutrophils (%) (Auto) 50.4 % (37.0-80.0) Lymphocytes (%) (Auto) 35.1 % (10.0-50.0) Monocytes (%) (Auto) 11.0 % (0.0-12.0) Eosinophils (%) (Auto) 3.1 % (0.0-7.0) Basophils (%) (Auto) 0.4 % (0.0-2.0) Neutrophils # (Auto) 2.6 10 ^3/uL (1.6-8.6) Lymphocytes # (Auto) 1.8 10 ^3/uL (0.4-5.4) Monocytes # (Auto) 0.6 10 ^3/uL (0-1.3) Eosinophils # (Auto) 0.2 10 ^3/uL (0-0.8) Basophils # (Auto) 0 10 ^3/uL (0-0.2) Nucleated Red Blood Cells 0.0 % Sodium Level 142 mmol/L (136-145) Potassium Level 3.8 mmol/L (3.5-5.1) Chloride Level 106 mmol/L (98-107) Carbon Dioxide Level 29 mmol/L (20-31) Anion Gap 7 (5-15) Blood Urea Nitrogen 17 mg/dL (9-23) Creatinine 0.68 mg/dL (0.550-1.02) Glomerular Filtration Rate Calc 84 mL/min (>90) BUN/Creatinine Ratio 25.0 (10.0-20.0) Serum Glucose 89 mg/dL (74-106) Calcium Level 8.9 mg/dL (8.7-10.4) Hemoglobin A1c 6.1 % A1C (<5.7) Magnesium Level 2.1 mg/dL (1.6-2.6) Total Bilirubin 0.6 mg/dL (0.2-1.0) Aspartate Amino Transferase (AST) 23 U/L (13-40) Alanine Aminotransferase (ALT) 20 U/L (7-40) Alkaline Phosphatase 71 U/L (46-116) B-Type Natriuretic Peptide 255.77 pg/mL (0-100) Total Protein 7.1 g/dL (5.7-8.2) Albumin 4.0 g/dL (3.2-4.8) Triglycerides Level 78 mg/dL (< 150) Cholesterol Level 151 mg/dL (< 200) LDL Cholesterol 86 mg/dL (< 100) HDL Cholesterol 53 mg/dL (40-59) Vitamin D 25-Hydroxy 42.9 ng/mL (30.0-100) Troponin I High Sensitivity 9 ng/L (</=34) Urine Opiates Screen Neg (NEGATIVE) Urine Fentanyl Screen Neg (NEGATIVE) Urine Barbiturates Screen Neg (NEGATIVE) Urine Phencyclidine Screen Neg (NEGATIVE) Urine Amphetamines Screen Neg (NEGATIVE) Urine Benzodiazepines Screen Neg (NEGATIVE) Urine Cocaine Screen Neg (NEGATIVE) Urine Cannabinoids Screen Neg (NEGATIVE) Test 04/16/25 12:35 Urine Color Light-yellow (Yellow) Urine Clarity Clear (Clear) Urine pH 6.5 (5.0-9.0) Urine Specific [place] 1.046 (1.001-1.035) Urine Protein Negative (Negative) Urine Ketones Negative (Negative) Urine Blood Negative /uL (Negative) Urine Nitrite Negative (Negative) Urine Bilirubin Negative (Negative) Urine Urobilinogen Normal mg/dL (Negative) Urine Leukocyte Esterase Negative /uL (Negative) Urine RBC <1 /hpf (0 - 4) Urine Microscopic WBC < 1 /HPF (0-5) Urine Squamous Epithelial Cells Few /hpf (<5) Urine Bacteria None seen /hpf (None Seen) Urine Glucose Trace mg/dL (Normal) Other Laboratory Tests 04/19/25 04:47 Brief Hx & Hospital Course: This 89-year-old female [place]er speaking past medical history of stroke with left-sided weakness(improving with PT) came to ER with a complaint of syncopal episode. As per daughter who accompanied with patient in ER, around 3:00 p.m. day before admission to hospital patient was washing her hand and suddenly feel dizziness associated with blurry vision. Daughter nearby the patient and hold her and put her down on the floor. Denies any head trauma or any seizure activity. As per daughter, patient having loss her consciousness for few sec. Patient having history of stroke 2 years back with residual left-sided weakness improving with physical therapy. Patient use Rollator walker at home for ambulation. Denies any similar episode before. During evaluation in ER, patient denies any fever, SOB, chest pain, cough, abdominal pain, dysuria. PMHx:stroke PSHx: Hip surgery Family history: patient does not know family history Social history: ex-smoker, denies alcohol or illicit drug use. Lives with daughter. Does not remember where she lives Allergic history: no known allergies PCP: [facility] medication: Aspirin 81 mg Hospital course: Patient admitted due to syncope. CT head: No acute territorial infarct, intracranial hemorrhage or mass effect. Age-related involutional changes.CT angio head and neck: No evidence of hemodynamically significant intracranial stenosis, proximal occlusion or aneurysm. X-ray Chest: No acute cardiopulmonary disease. EKG: Sinus rhythm, rate 68, QTC 465Orthostatic vital negative(Blood pressure sitting 147/66, lying 141/72, standing 147/72). Echo 04/17/2025 showed moderate degree of LVH, moderate diastolic dysfunction, LVEF 65%, normal valves. Troponin-negative, BNP 255.77. Patient conservatively during hospital stay and got treatment both acute and chronic medical condition. Patient came maximum benefit during inpatient stay. Patient also asymptomatic bradycardia heart rate increases during physical activity, Patient will benefitted with follow-up with outpatient Cardiology possible stress test and Holter monitor. During examination on 05/19/2024, patient denies any fever, SOB, chest pain, headache, abdominal pain, dysuria or any other acute distress. Patient is hemodynamically stable for discharge. Patient has received maximum benefit from inpatient treatment. Time was given to answer patient's questions and concerns in layman terms and explained by RN. Patient verbalized understanding and agreed with treatment and follow-up. Patient was recommended to return to ER if he experiences any worsening symptoms not limited to current symptoms. Follow-up with PCP and outpatient continuity clinic [place] morning within week after discharge. Follow up with outpatient Cardiology 2-4 weeks after discharge. Patient advised to resume home medication and medication sent to pharmacy. Physical examination Constitutional: No: Fever, Chills, Sweats, Weakness, Malaise, Other Eyes: No: Pain, Vision change, Conjunctivae inflammation, Eyelid inflammation, Other, Redness ENT: No: Ear pain, Ear discharge, Nose pain, Nose discharge, Nose congestion, Mouth pain, Mouth swelling, Throat pain, Throat swelling, Other Respiratory: Shortness of breath; No: Cough, Dry, SOB with excertion, Wheezing, Hemoptysis, Pleuritic Pain, Sputum, Wheezing, Other Cardiovascular: No: Chest Pain, Palpitations, Orthopnea, Paroxysmal Noc. Dyspnea, Edema, Lt Headedness, Other Gastrointestinal: No: Nausea, Vomiting, Abdominal Pain, Diarrhea, Constipation, Melena, Hematochezia, Other Genitourinary: No Dysuria, No Frequency, No Incontinence, No Hematuria, No Retention, No Other Musculoskeletal: No: other, neck pain, shoulder pain, arm pain, back pain, hand pain, leg pain, foot pain Skin: No: Rash, Lesions, Jaundice, Bruising, Other Neurological: No: Weakness, Numbness, Incoordination, Change in speech, Confusion, Seizures, Other > 23 minute spent with patient. Case discussed with patient, nurse, Dr. Goldberg. Operations or Procedures ORDERING PHYSICIAN: YOLANDE CAMPOS MD PROCEDURE(s): CXRP - CHEST PORTABLE REASON: sob ORDER NUMBER(s): [id number], ACCESSION NUMBER(s): [id number] CLINICAL HISTORY: Shortness of breath TECHNIQUE: Single frontal view of the chest was obtained. COMPARISON: None available. FINDINGS: DEVICES/LINES/TUBES: None. LUNGS: Scattered reticular opacities of the lung bases, which favors subsegmental atelectasis, mild scarring, and/or senescent changes. Otherwise, lungs are clear. No consolidation or jorge pulmonary edema. PLEURA: No pneumothorax or pleural effusion. MEDIASTINUM/OTHER: Normal heart size and mediastinal contours. Aortic atherosclerosis. Trachea is midline. BONES: No acute osseous abnormality. UPPER ABDOMEN: Unremarkable. IMPRESSION: No acute cardiopulmonary process. ATED BY: ART HOLDER MD DICTATED DATE/TIME: 04/16/25 758 ORDERING PHYSICIAN: YOLANDE CAMPOS MD PROCEDURE(s): HWOCT - HEAD WITHOUT CONTRAST REASON: tia ORDER NUMBER(s): [id number], ACCESSION NUMBER(s): [id number] EXAM: CT HEAD WITHOUT CONTRAST INDICATION: tia TECHNIQUE: CT of the head without intravenous contrast. Radiation Dose : 1. Head: CT Dose: CTDI volume is 53.4 mGy. Dose-length product is 965.2 mGy*cm The dose indicators for CT are the volume Computed Tomography (CT) Dose Index (CTDIvol) and the Dose Length Product (DLP), and are measured in units of mGy and mGy-cm, respectively. These indicators are not patient dose, but values generated from the CT scanner acquisition factors. The report includes radiation exposure data for exposures received during this examination. COMPARISON: None FINDINGS: Motion artifact degrades fine detail. No acute territorial infarct, intracranial hemorrhage, or mass effect. There are global involutional changes with compensatory prominence of the ventricles and sulci. Patchy periventricular and subcortical white matter hypoattenuation is nonspecific but may be related to small vessel ischemic disease. Chronic deep cerebral lacunar infarcts. Probable small chronic bilateral cerebellar infarcts. The orbits are normal. The paranasal sinuses and mastoid air cells are clear. The osseous structures are unremarkable. IMPRESSION: 1. No acute territorial infarct, intracranial hemorrhage, or mass effect. 2. Age-related involutional changes. Chronic ischemic changes as detailed. 3. If clinical symptoms persist, MRI may be beneficial in further evaluation. Radiation optimization: All CT scans at this facility use at least one of these dose optimization techniques: automated exposure control mA and/or kV adjustment per patient size (includes targeted exams where dose is matched to clinical indication) or iterative reconstruction. ATED BY: CARSON WEBB MD DICTATED DATE/TIME: 04/16/25 2638 ORDERING PHYSICIAN: RADHA CRONIN PROCEDURE(s): [place] - ANGIO HEAD/Neck REASON: h/o stroke ORDER NUMBER(s): [id number], ACCESSION NUMBER(s): [id number] PROCEDURE: CT ANGIO HEAD/Neck HISTORY: h/o stroke Comparison Study: CT HEAD WITHOUT CONTRAST on DOS: 04/16/25 Exam Date:04/17/2025 05:17 AM TECHNIQUE: CTA head and neck was obtained with intravenous contrast. 3D image postprocessing was performed and images were used for interpretation and reporting. Radiation Dose : CT Dose: CTDI volume is 22.2 mGy. Dose-length product is 709.5 mGy*cm FINDINGS: CTA head: The bilateral distal internal carotid arteries, middle cerebral and anterior cerebral arteries are patent. There is a patent anterior communicating artery complex. The vertebral arteries are patent. Bilateral posterior cerebral arteries are patent. The basilar artery is patent. No evidence of arteriovenous malformation or aneurysm. No high-grade stenosis or occlusion. CTA neck: There are atherosclerotic calcifications in the thoracic aorta without significant stenosis. The right common carotid, right internal and external carotid arteries are patent. The left common carotid, left internal and external carotid arteries are patent. The bilateral vertebral arteries are patent. No evidence of dissection or high-grade stenosis in the neck. Emphysema in the lung apices. The surrounding soft tissues and osseous structures are otherwise unremarkable. IMPRESSION: 1. No evidence of hemodynamically significant intracranial stenosis, proximal occlusion or aneurysm. 2. No evidence of hemodynamically significant cervical stenosis or dissection. CAROTID STENOSIS REFERENCE Distal internal carotid artery diameter as the denominator for stenosis measurement: MILD = <50% stenosis. MODERATE = 50-69% stenosis. SEVERE = 70-89% stenosis. CRITICAL = 90-99% stenosis. OCCLUDED = 100% stenosis. All CT scans at this medical facility are performed using dose modulation techniques as appropriate to a performed exam including the following: Automated exposure control was utilized; adjustment of the MA and/or KV according to patient size; and use of iterative reconstruction technique. ATED BY: POLLY RUBI MD DICTATED DATE/TIME: 04/17/25622 Condition at Discharge: Stable Final Diagnosis/Problems List Syncope. History of stroke Ruled out orthostatic hypotension Asymptomatic bradycardia Prediabetes Discharge Disposition: Home Discharge Instruct/Medications Diet: Regular Activity: No Restrictions, As Tolerated Follow Up/Referral: pcp Follow up out patient cardiology for stress test and Holter monitor. Out patient continuity clinic Thursday morning within 2 week of discharge Scheduled Aspirin (Aspir-81), 1 TAB PO DAILY, (Reported) Aspirin (Aspirin Low Dose), 1 TAB PO DAILY Atorvastatin Calcium (Atorvastatin Calcium), 40 MG PO HS Discharge Statement: "Patient was advised to return to the ER or call 911 if any headaches, dizziness, shortness of breath, chest pain, abdominal pain, bleeding, fevers, or worsening of medical condition. Patient was counseled about treatment plan, medications, possible side effects, patientverbalized understanding. All questions were answered to the best of my ability. This discharge took greater then 30 minutes in planning, reviewing documentation, counseling the patient, and discussing with other team members." ASSESSMENT ASSESSMENT Assessment Syncope. Visit Coding STANDARD RES Billing Provider: GISELE GOLDBERG MD Date of Service if different f: Apr 19, 2025 JONAH ZELAYA RESIDENT Apr 19, 2025 06:39
[2025-04-19 08:00] VITALS: PULSE 54; PULSE 69; RESP 16; O2SAT 96
[2025-04-19 08:57] VITALS: BP 142/69; PULSE 58; RESP 16; TEMP 97.8; O2SAT 95
[2025-04-19] MEDS: MELATONIN 5 MG TAB ONE (12:11)
[2025-04-19 13:04] VITALS: BP 144/84; PULSE 69; RESP 16; TEMP 97.8; O2SAT 94
== END 2025-04-19 13:12 | disposition home or self-care (01) | DRG 204 ==
LOC: ER 16:37 → EDBD 16:37 → OVERFLOW 23:43 → TELE-WESTW 04-17 12:29
PROVIDERS: ADMIT Student in an Organized Health Care Education/Training Program; ATTEND Student in an Organized Health Care Education/Training Program
DX: R55 Syncope and collapse (principal); I69.354 Hemiplegia and hemiparesis following cerebral infarction affecting left non-dominant side; E11.65 Type 2 diabetes mellitus with hyperglycemia; Z87.891 Personal history of nicotine dependence
CPT/HCPCS: 36415; 70450; 70496; 70498; 71045; 80048; 80053; 80061; 80307; 81001; 82306; 83036; 83735; 83880; 84484; 85025; 93005; 93306; 96360; G0378